=== PATIENT | female | born 1990 | race Caucasian/White ===

== ENCOUNTER 2020-11-01 07:57 | Inpatient (IN) | payer OTHER, MEDICAID ==
[2020-11-01] MEDS ORDERED: Acetaminophen 325 MG Tab PO PRN (08:03)
[2020-11-01] MEDS ORDERED: Oxytocin/Normal Saline 30 UNIT/500 ML BAG IV SCH (08:15)
[2020-11-01] MEDS: Misoprostol 25 MCG (1/4 of 100 MCG) Tab VAG PRN ×2 (10:25→21:49)
[2020-11-01] MEDS ORDERED: hydrOXYzine HCl 25 MG Tab PO PRN (13:07)
--- NOTE | 2020-11-01 13:15 | PCM.LDHP ---
L&D History of Present Illness - General Date of Service: 11/01/20 Admit Problem/Dx: Patient Status Order with Admit Dx/Problem 11/01/20 08:03 Patient Status [ADT] Routine Admission Diagnosis/Problem Admission Diagnosis/Problem Term - History of Present Illness Introduction:: Patient is a at 40w0d who presents today for elective induction of labor. has been uncomplicated. Baby has been active. Denies contractions, vaginal discharge or bleeding, leakage of fluid. She is GBS negative. Diagnosed with chlamydia at the beginning of and adequately treated, confirmatory testing negative. 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 Social & Family History - Family History Family Medical History: No Pertinent Family History Oncologic: Reports: Breast - Tobacco Use Tobacco Use Status *Q: Never Tobacco User Second Hand Smoke Exposure: No - Caffeine Use Caffeine Use: Reports: Coffee, Soda - Recreational Drug Use Recreational Drug Use: No H&P Review of Systems - Review of Systems: Review Of Systems: See Below General: Denies: Fever, Chills HEENT: Denies: Headaches, Sinus Congestion, Sore Throat, Vertigo, Visual Changes Pulmonary: Denies: Shortness of Breath, Cough Cardiovascular: Denies: Edema, Lightheadedness Gastrointestinal: Denies: Abdominal Pain, Nausea, Vomiting Neurological: Denies: Dizziness, Headache L&D Exam - Exam Exam: See Below - Vital Signs Vital Signs: Last Vital Signs Temp Pulse 84 11/01/20 08:20 Resp BP 141/77 H 11/01/20 08:20 Pulse Ox Weight: 165 lb - OB Specific Contraction Frequency (min): irregular Contraction Intensity: Mild Movement: Active Heart Tones: Present Heart Tones per Min: 140 Heart Rate (FHR) Variability: Moderate (6-25 bmp) Presentation: Vertex - Stoll Score Stoll Score Cervix Position: Posterior Stoll Score Consistency: Firm Stoll Score Effacement: 0-30% Stoll Score Dilation: Closed Stoll Score Infant's Station: -3 Stoll Score Total: 0 - Exam General: Alert, Oriented HEENT: Conjunctiva Clear Neck: Supple, Trachea Midline Lungs: Clear to Auscultation, Normal Respiratory Effort Cardiovascular: Regular Rate, Regular Rhythm GI/Abdominal Exam: Normal Bowel Sounds, Soft, Non-Tender Extremities: Normal Inspection, Non-Tender, No Pedal Edema Skin: Warm, Dry Neurological: Reflexes Equal Bilateral. No: Focal Deficit - Patient Data Lab Results Last 24 hrs: Laboratory Results - last 24 hr 11/01/20 11/01/20 Range/Units 08:35 08:41 WBC 9.0 (5.0-10.0) 10^3/uL RBC 3.89 L (4.2-5.4) 10^6/uL Hgb 12.1 (12.0-16.0) g/dL Hct 34.0 L (37.0-47.0) % MCV 87.4 (80-100) fL MCH 31.1 (27.0-34.0) pg MCHC 35.6 H (33.0-35.0) g/dL Plt Count 242 (150-450) 10^3/uL SARS-CoV-2 RNA (SUMI) Negative (NEGATIVE) Result Diagrams: 11/01/20 08:41 - Problem List (1) History of miscarriage, currently SNOMED Code(s): 325056946, 316714105 ICD Code: O09.299 - SUPRVSN OF PREG W POOR REPRODCTV OR OBSTET HISTORY, UNSP TRI Status: Acute Current Visit: Yes (2) Term SNOMED Code(s): 05948544 ICD Code: Z34.90 - ENCNTR FOR SUPRVSN OF NORMAL , UNSP, UNSP TRIMESTER Status: Acute Current Visit: Yes (3) History of chlamydia SNOMED Code(s): 130716986 ICD Code: Z86.19 - PERSONAL HISTORY OF OTHER INFECTIOUS AND PARASITIC DISEASES Status: Acute Current Visit: Yes (4) Rubella immune SNOMED Code(s): 238253919 ICD Code: Z78.9 - OTHER SPECIFIED HEALTH STATUS Status: Acute Current Visit: Yes (5) Maternal anemia in , antepartum SNOMED Code(s): 817079764 ICD Code: O99.019 - ANEMIA COMPLICATING , UNSPECIFIED TRIMESTER Status: Acute Current Visit: Yes Problem List Initiated/Reviewed/Updated: Yes Orders Last 24hrs: Active Orders 24 hr Category Date Time Status Patient Status [ADT] Routine ADT 11/01/20 08:03 Active Communication Order [RC] ASDIRECTED Care 11/01/20 08:03 Active Communication Order [RC] ASDIRECTED Care 11/01/20 08:03 Active Communication Order [RC] ASDIRECTED Care 11/01/20 08:03 Active Communication Order [RC] ASDIRECTED Care 11/01/20 08:03 Active Notify Provider Vital Signs OB [RC] ASDIRECTED Care 11/01/20 08:03 Active Notify Provider [RC] PRN Care 11/01/20 08:03 Active Notify Provider [RC] STAT Care 11/01/20 08:03 Active Up ad Shannon [RC] PER UNIT ROUTINE Care 11/01/20 08:03 Active Regular Diet [DIET] Diet 11/01/20 Lunch Active Acetaminophen [TylenoL] Med 11/01/20 08:03 Active 650 mg PO Q4H PRN Lactated Ringers [Ringers, Lactated] 1,000 ml Med 11/01/20 08:15 Active IV ASDIRECTED Oxytocin/Normal Saline [Pitocin in NS 30 UNIT/500 ML] Med 11/01/20 08:15 Active 30 unit in 500 ml IV TITRATE Sodium Chloride 0.9% [Saline Flush] Med 11/01/20 08:03 Active 10 ml FLUSH ASDIRECTED PRN hydrOXYzine HCL [Atarax] Med 11/01/20 13:07 Ordered 25 mg PO Q6H PRN miSOPROStoL [Cytotec] Med 11/01/20 08:03 Active 25 mcg VAG Q4H PRN Peripheral IV Insertion Adult [OM.PC] Urgent Oth 11/01/20 08:03 Ordered Medication Orders Acetaminophen (Tylenol) 650 mg PO Q4H PRN PRN Reason: Pain/Fever Hydroxyzine HCl (Atarax) 25 mg PO Q6H PRN PRN Reason: Sedation Lactated Ringer's (Ringers, Lactated) 1,000 mls @ 999 mls/hr IV ASDIRECTED OTIS Oxytocin/Sodium Chloride (Pitocin In Ns 30 Unit/500 Ml) 30 unit in 500 mls @ 2 mls/hr IV TITRATE OTIS; Protocol Misoprostol (Cytotec) 25 mcg VAG Q4H PRN PRN Reason: cervical ripening Last Admin: 11/01/20 10:25 Dose: 25 mcg Documented by: YONI Sodium Chloride (Saline Flush) 10 ml FLUSH ASDIRECTED PRN PRN Reason: Keep Vein Open Assessment/Plan Comment:: Admit for induction of labor. Cytotec induction- up to 8 doses if appropriate. Pitocin when able. AROM when able. Patient undecided about intrathecal. GBS negative, no abx needed. Anticipate vaginal delivery. Tg Ordoñez MD
[2020-11-01] MEDS: Lactated Ringers 1,000 ML IV SCH (17:39)
[2020-11-01] MEDS: Sodium Chloride 0.9% 10 ML Syringe FLUSH PRN (17:39)
[2020-11-02] MEDS: Misoprostol 25 MCG (1/4 of 100 MCG) Tab VAG PRN ×3 (01:54→13:30)
[2020-11-02] MEDS ORDERED: Nalbuphine 10 MG/1 ML Vial IV ONE (15:48)
[2020-11-02] MEDS ORDERED: ePHEDrine 50 MG/ML SDV IVPUSH PRN (15:50)
[2020-11-02] MEDS ORDERED: Ondansetron 4 MG/2 ML SDV IVPUSH PRN (15:50)
[2020-11-02] MEDS ORDERED: Naloxone 2 MG/2 ML Syringe IVPUSH PRN (15:50)
[2020-11-02] MEDS ORDERED: Promethazine 25 MG/ML SDV IM PRN (15:50)
[2020-11-02] MEDS ORDERED: Lactated Ringers 500 ML IV SCH ×2 (16:00)
[2020-11-02] MEDS ORDERED: Sodium Chloride 0.9% 1,000 ML IV SCH (16:00)
[2020-11-02] MEDS ORDERED: fentaNYL 100 MCG/2 ML SDV IVPUSH PRN (16:52)
[2020-11-02] MEDS ORDERED: fentaNYL 100 MCG/2 ML SDV ONE ×2 (18:13→23:09)
[2020-11-02] MEDS ORDERED: EPINEPHrine 1 MG/1 ML Amp ONE ×2 (18:14→23:09)
[2020-11-02] MEDS ORDERED: Sodium Bicarbonate 4.2% 2.5 MEQ/5 ML SDV ONE ×2 (18:14→23:09)
--- NOTE | 2020-11-02 18:43 | PCM.SN.2 ---
- Free Text/Narrative Note: Intrathecal. Sitting position, sterile prep and drape. 1% lidocaine w bicarb for skinwheal to L2 L3 interspace. Introducer, 24 ga pencan x 1. Pos CSF, neg heme, neg parasthesia. 0.1 ml pf 1:1000 epi, 15 mcg pf sufenta, 35 mcg pf fentanyl, 0.4 ml pf NS and 6 mg of 0.75% pf Marcaine injected after CSF aspiration. Pt to L lateral position. Procedure time 181 TO 184
[2020-11-02] MEDS ORDERED: Oxytocin/Normal Saline 30 UNIT/500 ML BAG IV SCH (19:30)
[2020-11-02] MEDS: Lactated Ringers 1,000 ML IV SCH (20:00)
[2020-11-02] MEDS ORDERED: Misoprostol 400 MCG (4 X 100 MCG TAB) RECTAL PRN (21:44)
[2020-11-02] MEDS ORDERED: Carboprost Tromethamine 250 MCG/1 ML Amp IM PRN (21:44)
[2020-11-02] MEDS ORDERED: Tranexamic Acid 1,000 MG in Sodium Chloride 0.9% 100 ML IV PRN (21:44)
[2020-11-02] MEDS ORDERED: Oxytocin 10 Units/1 ML SDV IM PRN (21:44)
--- NOTE | 2020-11-02 23:28 | PCM.SN.2 ---
- Free Text/Narrative Note: Intrathecal. Sitting position, sterile prep and drape. 1% lidocaine w bicarb for skinwheal to L2 L3 interspace. Introducer, 24 ga pencan x 1. Pos CSF, neg heme, neg parasthesia. 0.1 ml pf 1:1000 epi, 15 mcg pf sufenta, 35 mcg pf fentanyl, 0.4 ml pf NS and 6 mg of 0.75% pf Marcaine injected after CSF aspiration. Pt to L lateral position. Procedure time 2310 to 2340
[2020-11-03] MEDS ORDERED: EPINEPHrine 1 MG/1 ML Amp ONE ×2 (00:01→00:02)
[2020-11-03] MEDS ORDERED: Sodium Chloride 0.9% 20 ML SDV ONE ×2 (00:01→00:02)
[2020-11-03] MEDS ORDERED: fentaNYL 100 MCG/2 ML SDV ITHECAL ONE ×2 (00:01→00:02)
[2020-11-03] MEDS ORDERED: Sodium Bicarbonate 4.2% 2.5 MEQ/5 ML SDV ONE ×2 (00:01→00:02)
[2020-11-03] MEDS ORDERED: ceFAZolin 2 GM in Premix Bag 1 BAG IV ONE (00:04)
[2020-11-03] MEDS ORDERED: Citric Acid/Sodium Citrate Solution 30 ML Cup PO ONE (00:04)
[2020-11-03] MEDS ORDERED: diphenhydrAMINE 50 MG/ML SDV IVPUSH PRN (00:30)
[2020-11-03] MEDS ORDERED: Acetaminophen/oxyCODONE 325-5 MG Tab PO PRN (00:30)
[2020-11-03] MEDS ORDERED: Lactated Ringers 1,000 ML IV SCH (00:30)
[2020-11-03] MEDS ORDERED: Methylergonovine 0.2 MG/1 ML Amp IM PRN (00:30)
[2020-11-03] MEDS ORDERED: Oxytocin/Normal Saline 60 UNIT/1,000 ML BAG ONE (00:42)
[2020-11-03] MEDS: Lactated Ringers 1,000 ML IV SCH ×2 (04:00→12:38)
--- NOTE | 2020-11-03 05:28 | CONS ---
SERVICE DATE: 11/03/2020 PERSON REQUESTING: Tg Ordoñez, PGY-III PERSON PERFORMING: Fadi Laguerre MD REASON FOR CONSULTATION: How do I further evaluate and manage this patient with concerns of status and intolerance of labor. HISTORY OF PRESENT ILLNESS: Malena Hoang is a 30-year-old G3, P0, 40-2/7 weeks on date of evaluation, who has been admitted since 11/01/2020 undergoing induction of labor with problems of gestational hypertension. Has had now 5 doses of Cytotec, Pitocin augmentation, and 2 intrathecals with spontaneous rupture of membranes with concerns with status as well as slow cervical dilation. The patient was admitted on 11/01/2020, underwent the above procedures with 5 doses of Cytotec, Pitocin augmentation. Spontaneous rupture of membranes noted status post intrathecal x2. 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 Noted to have recurrent decelerations with Pitocin augmentation. Pitocin was subsequently stopped. Oxygen was given. Position changes ensued. Despite this, the patient continued to have some recurrent decelerations as low as into the 70s to 80s. I was called to consult in regard to this for potential need for as well. HISTORY: Remarkable for being GBS negative. Gestational hypertension noted upon this diagnosis with no preeclampsia. Having maternal anemia and history of chlamydia that was treated earlier and negative thereafter. Records called for, reviewed as below, and supplemented by patient history. ANTEPARTUM LABS: ABO blood type is A positive. Negative antibody. Rubella immune. Syphilis antibody is nonreactive. Negative hepatitis B surface and hep C, HIV. GC with positive chlamydia on 03/13/2020 treated and negative on 04/17 and 09/26/2020. One-hour GTT on 08/04/2020 was 78. Hemoglobin 11.4, platelets were 236 on that day. GBS was negative on 10/03/2020. ALLERGIES: Nickel and lactose type allergies. OBSTETRICAL HISTORY: Two previous miscarriages. No D and C's required. PAST SURGICAL HISTORY: Negative. PAST MEDICAL HISTORY: Otherwise reviewed and felt to be negative. FAMILY HISTORY: Negative for anesthesia problems, bleeding problems, or defects. Mother noted to have preeclampsia with some of her pregnancies. Maternal grandmother with breast cancer. SOCIAL HISTORY: The patient lives in [facility] around [place]. Works for [employer]. Father of baby, Aiden Rider, is present today. This is their 1st baby together. She denies any alcohol, tobacco, or drug use. REVIEW OF SYSTEMS: Otherwise reviewed and felt to be noncontributory. OBJECTIVE: Vital Signs: Last blood pressure 132/58, heart rate 105, temperature 98.4. Appearance: Female, appears stated age, acting appropriate for age, nontoxic appearance. Head: Atraumatic. EOMs intact. No scleral icterus. No sore throat. Mucous membranes are moist. Nasal piercing noted. Neck: No obvious masses or lesions. Lungs: Clear to auscultation bilaterally. No increased work of breathing. Heart: S1, S2. Regular rate and rhythm. Abdomen: Gravid. Horace's indeterminate. Nontender, nondistended. Bowel sounds positive. No organomegaly, pulsatile masses, or obvious hernias. No rebound, rigidity, or guarding with monitors applied. : Deferred. Rectal: Deferred. By serial vaginal exam, she is 5 cm, 90% effaced, -2 station with slow cervical change throughout this whole process with induction. Extremities: Trace pedal edema. Deep tendon reflexes 1 to 2 out of 4 bilaterally and symmetric in extremities. Psychiatric: Mood and affect congruent. Judgment and insight intact. Skin: Without any cyanosis, clubbing, or jaundice. heart tones shortly after midnight do reveal a baseline around the 130 to 145 range with recurrent late decelerations with contractions every 5 to 10 minutes. LABORATORY DATA: On 11/01/2020, white cell count 9, hemoglobin 12.1, platelets 242. Urine protein creatinine ratio, catheterized specimen as proper was 217.9. HELLP labs were negative. ASSESSMENT: 1. Intrauterine at 40-2/7 weeks by 6-5/7 week ultrasound. 2. intolerance of labor with recurrent late decelerations. 3. Nonreassuring status with recurrent late decelerations noted. 4. History of chlamydia treated and negative thereafter. 5. Group B Streptococcus negative. 6. Gestational hypertension, but no evidence of preeclampsia at this time. 7. G3, P0. PLAN: Did discuss with the patient and Dr. Ordoñez recommendation to proceed with primary low transverse with 2-layer uterine closure under spinal anesthesia if able. I did discuss with her and her male partner proceeding with these recommendations as well as risks, benefits, alternatives, complications of including, but not limited to, infection; bleeding; damage to organs such as bowel, bladder, tubes, uterus, ovaries, and sometimes fetus; rarely needing a blood transfusion or further surgery; and rare maternal or . She understands, agrees, and wishes to proceed. Verbal and written consents were obtained, and questions were answered. We will proceed to the OR as soon as crew is ready and available. Pitocin has been stopped at this point in time. We will continue to follow maternal status in the meantime as well. Please see orders for further details in terms of plans as well. [facility] /[id number]
--- NOTE | 2020-11-03 07:47 | OR ---
DATE: 11/03/2020 PREOPERATIVE DIAGNOSES: 1. Intrauterine at 40 and 2/7 weeks by 6-5/7 weeks ultrasound. 2. intolerance of labor. 3. Nonreassuring status. 4. History of chlamydia, treated and negative thereafter. 5. Group B Streptococcus negative. 6. Gestational hypertension without preeclampsia. 7. G3, P0-0-2-0. POSTOPERATIVE DIAGNOSES: 1. Intrauterine at 40 and 2/7 weeks by 6-5/7 weeks ultrasound, delivered. 2. intolerance of labor. 3. Nonreassuring status. 4. History of chlamydia, treated and negative thereafter. 5. Group B Streptococcus negative. 6. Gestational hypertension without preeclampsia. 7. G3, P0-0-2-0. 8. Difficulty delivering vertex requiring Kiwi assistance. PROCEDURE PERFORMED: Primary low transverse section with 2-layer uterine closure requiring Kiwi vacuum assistance for delivery of vertex. CLINICAL DOCUMENTATION MANAGER: Tg Ordoñez, PGY-III, ANESTHESIA: Spinal. ESTIMATED BLOOD LOSS: 500 mL. IV FLUIDS: 250 mL of Pitocin and 1000 mL of lactated Ringer's. URINE OUTPUT: 190 mL and clear yellow. START: 1:23. UTERINE INCISION: 1:27. DELIVERY: 1:28. STOP: 1:50. FINDINGS: Female, scores 8 and 9, weight pending. DESCRIPTION OF PROCEDURE IN DETAIL: After proper consent was obtained, the patient was brought to the operating room where spinal anesthetic was administered. A Mehta was placed under preop under sterile conditions. Abdomen was prepped and draped in normal sterile fashion. The patient was placed in the supine position with a left lateral tilt. A skin incision was then made over the lower abdomen in a transverse Pfannenstiel-type fashion. This was carried down to the fascia and scored in the midline. Subcutaneous tissue was raked laterally with Todd retractor. Fascial incision was extended in transverse fashion using curved Penn's. Eva clamps x2 were used to grasp the superior aspect of the fascia and rectus muscle was dissected from the fascia using sharp and blunt technique. In a similar fashion, Eva clamps x2 were used to grasp the inferior portion of the incision. Rectus and pyramidalis muscles were dissected from the fascia using sharp and blunt technique. Rectus muscles were in the midline with blunt technique. Abdominal cavity was entered in blunt technique, and incision was extended superiorly and inferiorly with blunt technique. Laci O large retractor was then introduced and used. The vesicouterine peritoneum was then identified, incised in transverse fashion with Metzenbaum scissors, and bladder flap was made digitally. A curvilinear incision was made on the lower uterine segment at 0127 hours. Uterus was entered sharply. Clear fluid returned. Uterine incision was then extended in transverse fashion using blunt technique. vertex was then delivered up from the pelvis through the incision and there was difficulty coming through the incision, therefore, Kiwi vacuum was called for, pumped up to the green when applied to the vertex and with gentle pulling and fundal pressure, vertex was delivered. Vacuum was disengaged. Rest of the delivered without difficulty. Mouth and nares were suctioned. Cord was doubly clamped and cut, and the was brought to team. Then, approximately 10 mL of cord blood was obtained for labs. Placenta was then delivered with gentle cord traction and fundal massage. Uterine cavity was then cleared of all blood clots with lap sponge. Lopez clamps were used to grasp the incision. This was closed in a running locked fashion and tied at lateral margins 1-0 Vicryl. Bleeding right lateral portion of the incision, a ibvygg-ff-ziezj stitch was applied. Hemostasis was reassured. A second imbricating layer was then applied and tied on the lateral margin with 1-0 Vicryl. There was minimal bleeding on the right lateral portion of the incision. Two more ejgqbo-cl-bkwzi stitches were applied over this area and hemostasis was reassured. First inspection of the uterine incision revealed hemostasis. Laci O retractor was removed and paracolic gutters were then cleared of all blood clots, debris, lap sponge. Anterior cul-de-sac was irrigated copiously and all blood clots were removed. Second and final inspection of uterine incision and anterior cul-de-sac revealed hemostasis. Rectus muscles were then reapproximated in midline with mwjczv-ab-vqvog stitch using 1-0 Vicryl. Subfascial tissues were found to be hemostatic and fascia was closed in running fashion and tied in the lateral margin with 0 looped PDS. Subcutaneous tissue was irrigated copiously. Hemostasis was reassured. Skin was reapproximated with medium ines. Sterile Aquacel dressing applied. Uterine fundus firm, massaged at the conclusion of the case, -2 below umbilicus. No immediate complications were noted. Sponge, lap, and needle counts were correct. The patient received 2 g of Ancef preoperatively, Pitocin per protocol, and received Toradol at the conclusion of the case for pain control. Mother and are currently stable at the time of dictation. [facility] /[id number]
[2020-11-03] MEDS ORDERED: Oxytocin/Normal Saline 30 UNIT/500 ML BAG IV ONE (08:17)
[2020-11-03] MEDS: Prenatal Multivitamin with Calcium/Folic Acid/Iron Tab PO SCH (08:26)
[2020-11-03] MEDS: Docusate Sodium 100 MG Cap PO PRN ×2 (08:26→21:00)
[2020-11-03] MEDS: Ketorolac 30 MG/ML SDV IVPUSH SCH ×3 (08:26→19:58)
[2020-11-03] MEDS: Simethicone 80 MG Tab.Chew PO SCH ×4 (08:26→21:00)
[2020-11-03] MEDS ORDERED: Morphine PF 1 MG/ML Amp ONE (12:29)
[2020-11-03] MEDS ORDERED: Lactated Ringers 1,000 ML IV ONE (12:29)
[2020-11-03] MEDS ORDERED: Dexamethasone 4 MG/ML SDV IV ONE (12:29)
[2020-11-03] MEDS ORDERED: Ketorolac 30 MG/ML SDV IVPUSH ONE (12:29)
--- NOTE | 2020-11-03 13:08 | PCM.SN.2 ---
- Free Text/Narrative Note: 11/02/20 Patient is here for induction of labor. She received 5 doses of cytotec. Pitocin was initiated. Intrathecal was provided when she was 3-4 cm dilated. Called to the floor after pitocin was turned up to 6 and monitoring showed recurrent late decelerations followed by a 4 1/2 minute deceleration into the 70s. Oxygen was applied, patient repositioned, fluid bolus was given, and pitocin was shut off. did recover well and had moderate variability shortly after. Pitocin was started again once cat 1 strip was observed for 20 minutes. Intrathecal X2 was provided and patient did have SROM. Cervical check shows her to be 5/90/-2. About 30 minutes later, baby again started having recurrent late decels with 2 prolonged lasting 2-3 minutes with heart rate into the 60s. Head stimulation provided and baby eventually recovered with fluids, repositioning, oxygen and discontinuation of pitocin. No cervical change noted. Dr. Laguerre called in to review strip and decision was made to proceed with primary due to intolerance to labor. See his notes for further details. Tg Ordoñez MD
[2020-11-03] MEDS: Sodium Chloride 0.9% 10 ML Syringe FLUSH PRN (20:03)
[2020-11-04] MEDS: Acetaminophen/oxyCODONE 325-5 MG Tab PO PRN ×3 (06:33→20:26)
[2020-11-04] MEDS: Simethicone 80 MG Tab.Chew PO SCH ×4 (08:59→20:25)
[2020-11-04] MEDS: Prenatal Multivitamin with Calcium/Folic Acid/Iron Tab PO SCH (08:59)
--- NOTE | 2020-11-04 11:46 | PN ---
DATE: 11/04/2020 LOCATION: [facility]. SUBJECTIVE: The patient is postoperative day #2, status post primary low- transverse section. She was induced at 40 weeks gestational age. Also had gestational hypertension. Preeclampsia labs were normal, maybe some proteinuria, and then had the for non-reassuring heart tones. Mom and baby are both doing well. She is voiding, ambulating, tolerating p.o., good pain control. PHYSICAL EXAMINATION: She is afebrile. Heart rate 72 to 79, blood pressure 105 to 115 systolic over 64 to 71 diastolic, respiratory rate 16 to 20, O2 sat 96%. The patient's abdomen is benign. The Aquacel dressing is intact. Extremities have no tenderness. No edema. Fundus is firm below the umbilicus. LABS: The patient is COVID negative. Blood type A positive. She is rubella immune. Pre-delivery hemoglobin was 12.1, and she will have another CBC tomorrow. ASSESSMENT AND PLAN: Postoperative day #2, status post primary low transverse section for non-reassuring heart tones. Mom and baby are both doing well. We will continue postoperative cares and likely discharge this patient tomorrow. [facility] /[id number]
[2020-11-04] MEDS: Ibuprofen 800 MG Tab PO PRN ×2 (12:17→20:25)
[2020-11-04] MEDS: Docusate Sodium 100 MG Cap PO PRN (20:25)
[2020-11-05] MEDS: Acetaminophen/oxyCODONE 325-5 MG Tab PO PRN ×2 (03:30→09:34)
[2020-11-05] MEDS: Ibuprofen 800 MG Tab PO PRN (03:31)
[2020-11-05] MEDS: Simethicone 80 MG Tab.Chew PO SCH (09:33)
[2020-11-05] MEDS: Prenatal Multivitamin with Calcium/Folic Acid/Iron Tab PO SCH (09:33)
[2020-11-05] MEDS ORDERED: EPINEPHrine 1 MG/1 ML Amp ONE (12:29)
[2020-11-05] MEDS ORDERED: fentaNYL 100 MCG/2 ML SDV ITHECAL ONE (12:29)
[2020-11-05] MEDS ORDERED: Sodium Chloride 0.9% 20 ML SDV ONE (12:29)
[2020-11-05] MEDS ORDERED: Sodium Bicarbonate 4.2% 2.5 MEQ/5 ML SDV ONE (12:29)
--- NOTE | 2020-11-05 19:05 | PN ---
DATE: 11/05/2020 LOCATION: [facility]. SUBJECTIVE: The patient is postoperative day 3 status post primary low- transverse section for failed gestational hypertension induction, post- dates induction also with non-reassuring heart tones. Mom and baby are both doing well. She is tolerating p.o., voiding, ambulating, good pain control. PHYSICAL EXAMINATION: Vital Signs: The patient is afebrile. Heart rate 72 to 81, blood pressure 108 to 133 systolic over 68 to 86 diastolic, respiratory rate 16 to 18, O2 sat 99%. Abdomen: The patient's fundus is firm below the umbilicus. Benign. Extremities: No tenderness, no edema. Aquacel dressing was examined and normal. LABORATORY DATA: The patient's blood type is A positive. She is rubella immune. Pre-delivery hemoglobin was 12.1. CBC this morning showed a hemoglobin of 10.4, white blood cell and platelets were normal. ASSESSMENT AND PLAN: Therefore, postoperative day 3 status post primary C- section. Mom and baby are both doing well. I will discharge her to home with #20 Percocet and she will have her Aquacel dressing removed next week. [facility] /[id number]
== END 2020-11-05 12:30 | disposition home or self-care (01) | DRG 788 ==
LOC: DL.OBCHECK 07:57 → DL.OB 08:03 → EDBD 08:03 → OBSVTOIN 09:23 → INTOOBSV 09:23 → OBSVTOIN 11-03 01:27 → DL.MS 11-03 04:09
PROVIDERS: ADMIT Family Medicine; ATTEND Family Medicine
PROC: 10D00Z1 Extraction of Products of Conception, Low, Open Approach (ICD-10-PCS; principal; 2020-11-03)
PROC: 3E0P7VZ Introduction of Hormone into Female Reproductive, Via Natural or Artificial Opening (ICD-10-PCS; 2020-11-03)
DX: O48.0 Post-term pregnancy (principal); O99.02 Anemia complicating childbirth; D64.9 Anemia, unspecified; O76 Abnormality in fetal heart rate and rhythm complicating labor and delivery; O13.4 Gestational [pregnancy-induced] hypertension without significant proteinuria, complicating childbirth; Z37.0 Single live birth; Z3A.40 40 weeks gestation of pregnancy; Z91.011 Allergy to milk products; Z86.19 Personal history of other infectious and parasitic diseases; Z20.822 Contact with and (suspected) exposure to COVID-19
CPT/HCPCS: 01961; 01967; 36415; 59409; 81003; 82565; 82570; 83615; 84156; 84450; 84460; 84520; 84550; 85027; 86850; 86900; 86901; A9270-GY; J0171; J0690; J1100; J1885; J2274; J2300; J2405; J2590; J3010; J7120; U0002

== ENCOUNTER 2021-07-01 15:36 | Emergency (ER) | payer MEDICAID ==
--- NOTE | 2021-07-01 20:00 | EDM.PDOC ---
ED HPI GENERAL MEDICAL PROBLEM - General Chief Complaint: [employer] Problem Stated Complaint: CYST OUTSIDE VAGINAL AREA Time Seen by Provider: 07/01/21 19:53 Source of Information: Reports: Patient - History of Present Illness INITIAL COMMENTS - FREE TEXT/NARRATIVE: Pt noted the cyst started on , about 3 days ago. She thought it was an ingrown hair as she does shave, but it has been getting worse. when she noted a lump in her left groin, she decided she had better come into be seen and not wait any longer. She denies any fevers or chills. Never had this before. She denies any drainage from the area. - Related Data Allergies Allergy/AdvReac Type Severity Reaction Status Date / Time lactose Allergy Abdominal Verified 11/01/20 08:16 Pain nickel Allergy Hives Verified 11/01/20 08:16 Home Meds: Home Meds #103/Iron Fumarate/Fa [ ] 1 tab PO DAILY 11/01/20 [History] Past Medical History - Past Health History Medical/Surgical History: Denies Medical/Surgical History [employer] History: Reports: , Spontaneous Social & Family History - Family History Family Medical History: No Pertinent Family History Oncologic: Reports: Breast - Tobacco Use Tobacco Use Status *Q: Never Tobacco User - Caffeine Use Caffeine Use: Reports: None - Recreational Drug Use Recreational Drug Use: No ED ROS GENERAL - Review of Systems Review Of Systems: Comprehensive ROS is negative, except as noted in HPI. ED EXAM, RENAL/ - Physical Exam Exam: See Below Exam Limited By: No Limitations General Appearance: Alert, WD/WN, No Apparent Distress Eye Exam: Bilateral Eye: Normal Inspection Ears: Normal External Exam Throat/Mouth: Normal Voice, No Airway Compromise Neck: Supple, Non-Tender Respiratory/Chest: No Respiratory Distress, No Accessory Muscle Use Cardiovascular: Normal Peripheral Pulses, Regular Rate, Rhythm GI/Abdominal: Soft, Non-Tender, No Distention (Female) Exam: Other (bartholin cyst noted on lower left labia, about 1 cm in diameter, fluctuant with mild surrounding erythema. Tender to palpation. 2 reactive lymph nodes palpated in left inguinal region, about 1 and 2 cm in diameter, tender to palpation. ) Rectal (Female) Exam: Deferred Extremities: Normal Inspection, Normal Range of Motion Neurological: Alert, Oriented, Normal Cognition, No Motor/Sensory Deficits Psychiatric: Normal Affect, Normal Mood Skin Exam: Warm, Dry, Intact ED PROCEDURES - Additional/Other Procedure(s) Procedure(s) (Free Text): Bartholin cyst drainage Verbal consent from pt Area was prepped and draped in the usual fashion. 1% lidocaine was used to infiltrate locally. An 11 blade was then used to incise down to the gland. About 1.5 cc of purulent fluid was expressed. Wick of 1/4 in guaze was used to prevent recurrence. Area was cleaned and dressed. Pt tolerated the procedure well. No complications apparent. Course - Vital Signs Last Recorded V/S: Last Vital Signs Temp 97.7 F 07/01/21 18:02 Pulse 107 H 07/01/21 18:02 Resp 16 07/01/21 18:02 BP 118/78 07/01/21 18:02 Pulse Ox 100 07/01/21 18:02 - Orders/Labs/Meds Orders: Active Orders 24 hr Category Date Time Status Amoxicillin/Clavulanate K [Augmentin 875 MG/125 MG] Med 07/01/21 20:18 Once 1 tab PO ONETIME ONE Meds: Medications Discontinued Medications Generic Name Dose Route Start Last Admin Trade Name Freq PRN Reason Stop Dose Admin Lidocaine HCl 30 ml 07/01/21 20:00 Lidocaine 1% 30 Ml Sdv INJECT 07/01/21 20:01 ONETIME ONE Departure - Departure Time of Disposition: 20:25 Disposition: Home, Self-Care 01 Condition: Good Clinical Impression: Bartholin cyst - Discharge Information *PRESCRIPTION DRUG MONITORING PROGRAM REVIEWED*: Not Applicable *COPY OF PRESCRIPTION DRUG MONITORING REPORT IN PATIENT CINDY: Not Applicable Instructions: Bartholin's Cyst Forms: ED Department Discharge Additional Instructions: Warm sitz baths to help encourage drainage Augmentin twice daily for infection. This medication may cause nausea or loose stools. Take with food to help decrease these side effects. Follow up with you primary care provider in 3-5 days Sepsis Event Note (ED) - Focused Exam Vital Signs: Vital Signs Temp Pulse Resp BP Pulse Ox 07/01/21 18:02 97.7 F 107 H 16 118/78 100 - My Orders Last 24 Hours: My Active Orders 07/01/21 20:18 Amoxicillin/Clavulanate K [Augmentin 875 MG/125 MG] 1 tab PO ONETIME ONE - Assessment/Plan Last 24 Hours: My Active Orders 07/01/21 20:18 Amoxicillin/Clavulanate K [Augmentin 875 MG/125 MG] 1 tab PO ONETIME ONE
[2021-07-01] MEDS: Amoxicillin/Clavulanate K 875-125 MG Tab PO ONE (20:28)
[2021-07-01] MEDS: Lidocaine 1% 30 ML SDV INJECT ONE (20:28)
== END 2021-07-01 20:34 | disposition home or self-care (01) ==
LOC: DL.ED 15:36
DX: N75.0 Cyst of Bartholin's gland (principal); Z91.09 Other allergy status, other than to drugs and biological substances
CPT/HCPCS: 56420; 99282; A9270